=== PATIENT | female | born 2000 | race Caucasian/White ===

== ENCOUNTER 2025-11-14 18:14 | Emergency (ER) | payer BC, SELFPAY ==
[2025-11-14 18:18] VITALS: BP 150/86
[2025-11-14 18:43] LABS: Hematocrit 37.0 % (37.0-47.0); Hemoglobin 12.7 g/dL (12.0-16.0); Mean Corp Hgb Conc. 34.3 g/dL (33.0-37.0); Mean Corpuscular Volume 90.7 fL (81.0-99.0); Nucleated Red Blood Cells % 0 %; Platelet Count 306 10^3/uL (130-400); Red Cell Dist. Width 12.2 % (11.5-14.5)
[2025-11-14 19:00] LABS: ALT (SGPT) 20 U/L (0-35); AST (SGOT) 23 U/L (14-36); Albumin 4.7 g/dl (3.5-5.0); Alkaline Phosphatase 48 U/L (38-126); Blood Urea Nitrogen 11 mg/dl (7-17); Calcium 9.7 mg/dl (8.4-10.2); Carbon Dioxide 24 mmol/L (22-30); Chloride 102 mmol/L (98-107); Glucose 89 mg/dl (70-99); Potassium 3.8 mmol/L (3.5-5.1); Sodium 134 mmol/L (135-145); Total Protein 7.6 g/dl (6.3-8.2); eGFR > 60.00
[2025-11-14 21:59] LABS: HCG, Serum Qualitative Screen Negative
--- NOTE | 2025-11-14 23:47 | ED.GENMED ---
History of Present Illness
General
Chief Complaint: Headache
Source: patient
Exam Limitations: none
Time Seen by Provider: 11/14/25 21:00
History of Present Illness
History of Present Illness:
25-year-old female presents complaining of intermittent headaches since 2 days ago. The headaches are severe at times with associated blurry vision and tingling in her fingers. She also notes chest tightness and palpitations. No fever chills or
sweats. She states her headache is improved at this time compared to what it was earlier. She has a family history of aneurysms in the brain. No other complaints at this time
Past History
Past History
ED Past Medical History: Negative Asthma, HTN, Hypercholesterolemia or NIDDM
ED Past Surgical History: None
Social History
Tobacco: Non-smoker
Alcohol: None
Personal: Single
Living: with family
Phy Exam
Physical Exam
Physical Exam:
General: Well-appearing female nontoxic no acute respiratory distress
HEENT: Normal cephalic atraumatic pupils equal round reactive to light TMs normal extract motion intact
Heart: Regular rate and rhythm
Lungs: Clear no wheeze
Abdomen is soft nontender neurologic exam: Alert and oriented
No facial asymmetry good strength to the upper and lower extremities
Skin warm no rash
Ext: NO cyanosis
Course
Orders/Labs/Results
Orders:
Orders
11/14/25 18:24
Electrocardiogram (*1) Urgent
Reason for Study: Chest Pain
EKG- Treatment ONCE
11/14/25 18:29
CMP [Comprehensive Metabolic Panel] Urgent
Complete Blood Count/With Diff Urgent
Erythrocyte Sed Rate Urgent
HCG, Serum Qualitative Screen Urgent
Comment: ADD ON
11/14/25 21:15
CT Angio Head W/Wo Iv Contrast [CT Head Angio W/wo Iv Contrast] Urgent
Comment:
Reason For Exam: headache, family h/o anyuerism
11/14/25 21:20
Add On- LAB Urgent
Comments:: add on
Tests Added?: esr- sed rate
11/14/25 21:24
Test Result ONCE
11/14/25 21:28
Add On- LAB Urgent
Comments:: add on
Tests Added?: hcg, qual
Abnormal Lab Results
11/14/25
18:29
WBC 13.0 H 10^3/uL
(4.8-10.8)
RBC 4.08 L 10^6/uL
(4.20-5.40)
MCH 31.1 H pg
(27.0-31.0)
Absolute Neuts (auto) 8.3 H 10^3/uL
(1.4-6.5)
Absolute Monos (auto) 0.8 H 10^3/uL
(0.1-0.6)
Sodium 134 L mmol/L
(135-145)
11/14/25 18:29
11/14/25 18:29
Vital Signs
Initial and Last Documented VS:
Initial Vital Signs
Temp Pulse Resp BP Pulse Ox
98.1 F 85 18 150/86 98
11/14/25 18:18 11/14/25 18:18 11/14/25 18:18 11/14/25 18:18 11/14/25 18:18
Last Documented Vital Signs
Temp Pulse Resp BP Pulse Ox
98.1 F 85 18 150/86 98
11/14/25 18:18 11/14/25 18:18 11/14/25 18:18 11/14/25 18:18 11/14/25 23:50
MDM/Problems Addressed
Differential Diagnosis Includes:
Patient with headache and blurry vision palpitations. Consider migraine headache versus tension. There is a family history of aneurysms in the brain. Will order CT head check sed rate. Patient's symptoms are improving and declined any pain
medication at this time
*Pulse Oximetry
SaO2: 98
Oxygen Mode of Delivery: Room air
Patient hypoxic: no
*Critical Care Note
Total Time (30-74mins, 75-104mins- exclusive of procedures): Not Applicable
Update Note
Update Note:
Patient reevaluated still looks nontoxic symptoms improved. CT negative. Suspect migraine-like headache. Recommended Excedrin. Stable for this
ED Attending Note
-
Portions of this chart may have been created with voice recognition software.� Occasional wrong word or��sound alike� substitutions may have occurred due to the inherent limitations of voice recognition software.
Discharge Plan
Departure
Patient Disposition: Home (Routine Discharge)
Date of Disposition: 11/14/25
Time of Disposition: 23:52
Patient with high blood pressure during this ER visit?: No
Discharge Problem:
Migraine
Instructions: Migraines (DC)
Referrals:
Alyson Orellana MD [Family Provider, Internal Medicine]
Stand Alone Forms: Return to Work
Activity Restrictions/Additional Instructions:
Rest. Drink plenty of fluids. Use Excedrin as needed for headaches. Return if worse otherwise follow-up with your doctor
Interventions
Interventions:
*General Assessment Last Done: 11/14/25 21:46
*Neglect/Abuse Screening Last Done: 11/14/25 21:46
*ED COVID-19 Vaccine History Last Done: 11/14/25 21:46
*ED Influenza Vaccine History Last Done: 11/14/25 21:46
[facility] Risk Assessment Tool Last Done: 11/14/25 21:46
*Risk Screen - Suicide (C-SSRS) Last Done: 11/14/25 21:46
ED- Neurological Assessment Last Done: 11/14/25 21:45
Discharge Date and Time
Print Language: SYRIAC
[2025-11-15 00:10] VITALS: BP 137/85
== END 2025-11-15 00:15 | disposition home or self-care (01) ==
LOC: EMR 18:14
PROVIDERS: Emergency Medicine; EMERGENCY PHYSICIAN Emergency Medicine; FAMILY PHYSICIAN Internal Medicine
DX: G43.909 Migraine, unspecified, not intractable, without status migrainosus (principal)
CPT/HCPCS: 99284; 70496; 80053; 84703; 85025; 85652; 93005; Q9967